=== PATIENT | female | born 1985 | race Caucasian/White ===

== ENCOUNTER 2021-09-16 10:55 | Emergency (ER) | payer MEDICAID ==
[2021-09-16 11:11] VITALS: BP 133/77; PULSE 82; O2SAT 99
--- NOTE | 2021-09-16 11:29 | ERPHSYRPT ---
- History of Present Illness Source: patient Exam Limitations: no limitations Patient Subjective Stated Complaint: pt was around seafood last night and rubbed her eye and today her right eye is red and swollen Triage Nursing Assessment: Pt brought to the ER by her boyfriend, adrienne garvin, denies pain, right eye suddenly became red and swollen at approx 1030, pt took an allergy tablet prior to coming but unsure of the drug of the medicine, pt denies any other symptoms or breathing problems, pt doesn't appear to be in any distress Physician History: 36 yo wf who is 5months presents w R eye redness/discharge x1hour. Pt took [employer] Claritin because she believes that she is having an allergic reaction to sushi and is allergic to seafood. Pt states that she is having milky, white discharge from the eye. She denies cough/coryza/trouble swallowing/dyspnea/contact lens use/R eye trauma. She also denies vag bleeding/discharge/pelvic pain. Timing/Duration: other (10:30) Location: right eye Severity: mild Apparent Injury: no Associated Symptoms: pain, itching, redness, matting, other (White discharge per pt) Visual Assistive Devices: None Chemical Exposure: No Trauma: No Welding Arc/Tanning Bed Exposure: No Allergies/Adverse Reactions: shellfish derived Allergy (Verified 09/16/21 11:11) Home Medications: Labetalol HCl 100 mg [Trandate 100 MG] 200 mg PO BID 09/16/21 [History] Levothyroxine Sodium 100 Mcg [Synthroid 100 Mcg] 100 mcg PO DAILY 09/16/21 [History] Pnv No.95/Ferrous Fum/Folic AC [ Vitamins Tablet] 1 tab PO DAILY 09/16/21 [History] Travel Risk - International Travel Have you traveled outside of the country in past 3 weeks: No - Coronavirus Screening Are you exhibiting any of the following symptoms?: No Close contact with a COVID-19 positive Pt in past 14-21 Days: No - Vaccine Status Have you recieved a Covid-19 vaccination: No - Review of Systems Constitutional: No Symptoms Eyes: Eye Redness, Itchy Ears, Nose, & Throat: No Symptoms Respiratory: No Symptoms Cardiac: No Symptoms Abdominal/Gastrointestinal: No Symptoms Genitourinary Symptoms: No Symptoms Musculoskeletal: No Symptoms Skin: No Symptoms Neurological: No Symptoms Psychological: No Symptoms Endocrine: No Symptoms Hematologic/Lymphatic: No Symptoms Immunological/Allergic: No Symptoms - Past Medical History Pertinent Past Medical History: Yes Cardiac History: Hypertension Endocrine Medical History: Hypothyroidism Other Medical History: anemia - Past Surgical History Past Surgical History: Yes Female Surgical History: Section - Social History Smoking Status: Never smoker Exposure to second hand smoke: Yes Drug Use: none Patient Lives Alone: No - Female History Hx Now: Yes Expected Date of Delivery: 02/03/22 - Nursing Vital Signs Nursing Vital Signs: Initial Vital Signs Temperature 96.4 F 09/16/21 11:00 Pulse Rate 82 09/16/21 11:00 Blood Pressure 133/77 09/16/21 11:00 O2 Sat by Pulse Oximetry 99 09/16/21 11:00 Pain Scale Pain Intensity 0 Borderline HTN - Physical Exam General Appearance: no apparent distress Vision Acuity Degree Evaluation Phase: Uncorrected Vision Acuity Right Eye: 20/70 Vision Acuity Left Eye: 20/50 Eye Exam: right eye: erythema (Pt reports R eye white discharge, but none noticed), exudate (Pt reports white DC but none seen), left eye: normal inspection, bilateral eye: PERRL, EOMI Ears, Nose, Throat Exam: normal ENT inspection, TMs normal, pharynx normal, moist mucous membranes Neck Exam: normal inspection, non-tender, supple, full range of motion, No meningismus, No mass, No Brudzinski, No Kernig's Respiratory Exam: normal breath sounds, airway intact Cardiovascular Exam: regular rate/rhythm, normal heart sounds, normal peripheral pulses, No murmur Gastrointestinal Exam: soft, normal bowel sounds, No tenderness Extremity Exam: normal inspection, normal range of motion Neurologic: alert, oriented x 3, cooperative, greens laborer II-XII nml as tested, normal mood/affect, nml cerebellar function, nml station & gait, sensation nml, No motor deficits, No sensory deficit Skin Exam: normal color, warm, dry, No rash Lymphatic: No adenopathy SpO2 Interpretation: normal SpO2: 99 O2 Delivery: Room Air - Course Nursing assessment & vital signs reviewed: Yes - Progress Progress Note: 09/16/21 15:10 Upon discharge, pt stated that she has glasses at home but does not wear them Counseled pt/family regarding: diagnosis, need for follow-up - Departure Departure Disposition: Home Clinical Impression: Conjunctivitis Condition: Stable Critical Care Time: No Referrals: Provider,Unknown [Primary Care Provider] - Follow up/PCP as directed Instructions: Conjunctivitis (Pinkeye) (DC) Additional Instructions: Ciloxan drops to right eye 4 times a day for 5 days Follow up with your family MD in 1-2 days or an eye doctor to check eye and vision Return to ER for any new signs/symptoms Prescriptions: Ciprofloxacin HCl [Ciloxan] 2 drops OP QID #5 ml
== END 2021-09-16 11:42 | disposition home or self-care (01) ==
LOC: MERGE 10:55 → ED 10:55
DX: H10.31 Unspecified acute conjunctivitis, right eye (principal); I10 Essential (primary) hypertension; Z33.1 Pregnant state, incidental; Z79.899 Other long term (current) drug therapy
CPT/HCPCS: 99283

== ENCOUNTER 2025-03-12 17:05 | Emergency (ER) | payer OTHER ==
--- NOTE | 2025-03-12 17:44 | ERPHSYRPT ---
- History of Present Illness Time Seen by Provider: 03/12/25 17:44 Source: patient, family Exam Limitations: no limitations Physician History: This is a morbidly obese 39-year-old white female patient arrives by private vehicle with a complaint of lateral left ankle and foot pain. She states has been present for 3 days. She does not recall a specific injury that occurred. Method of Injury: unknown Occurred: days ago (3) Severity of Pain-Max: mild Severity of Pain-Current: mild Lower Extremities Pain: foot: left (Lateral), ankle: left (Lateral) Modifying Factors: Improves With: movement Associated Symptoms: other (Hurts to bear weight but can do so) Allergies/Adverse Reactions: shellfish derived Allergy (Verified 09/17/21 11:51) Home Medications: Labetalol HCl 100 mg [Trandate 100 MG] 200 mg PO BID 09/16/21 [History] Levothyroxine Sodium 100 Mcg [Synthroid 100 Mcg] 100 mcg PO DAILY 09/16/21 [History] Pnv No.95/Ferrous Fum/Folic AC [ Vitamins Tablet] 1 tab PO DAILY 09/16/21 [History] Travel Risk - International Travel Have you traveled outside of the country in past 3 weeks: No - Emerging Infectious Disease Are you exhibiting symptoms associated with any current EIDs: No - Review of Systems Constitutional: No Symptoms Eyes: No Symptoms Ears, Nose, & Throat: No Symptoms Respiratory: No Symptoms Cardiac: No Symptoms Abdominal/Gastrointestinal: No Symptoms Genitourinary Symptoms: No Symptoms Musculoskeletal: Joint Pain (Left foot and ankle) Skin: No Symptoms Neurological: No Symptoms Psychological: No Symptoms Endocrine: No Symptoms Hematologic/Lymphatic: No Symptoms Immunological/Allergic: No Symptoms All Other Systems: Reviewed and Negative - Past Medical History Pertinent Past Medical History: Yes Cardiac History: Hypertension Endocrine Medical History: Hypothyroidism Other Medical History: anemia - Past Surgical History Past Surgical History: Yes Female Surgical History: Section - Social History Smoking Status: Never smoker Exposure to second hand smoke: Yes Drug Use: none Patient Lives Alone: No - Nursing Vital Signs Nursing Vital Signs: Initial Vital Signs Temperature 97.7 F 03/12/25 17:06 Pulse Rate 92 H 03/12/25 17:06 Respiratory Rate 18 03/12/25 17:06 Blood Pressure 142/82 03/12/25 17:06 O2 Sat by Pulse Oximetry 96 03/12/25 17:06 Pain Scale Pain Intensity 4 - Physical Exam General Appearance: no apparent distress, alert, obese Eyes, Ears, Nose, Throat Exam: normal ENT inspection, moist mucous membranes Neck Exam: normal inspection, non-tender, supple, full range of motion Cardiovascular/Respiratory Exam: chest non-tender, no respiratory distress Gastrointestinal/Abdominal Exam: non-tender Back Exam: normal inspection, normal range of motion, No CVA tenderness, No brendan tebral tenderness Hips Exam: bilateral: non-tender, normal inspection, normal range of motion, no evidence of injury Legs Exam: bilateral leg: non-tender, normal inspection, normal range of motion, no evidence of injury Knees Exam: bilateral knee: non-tender, normal inspection, normal range of motion, no evidence of injury Ankle Exam: right ankle: non-tender, left ankle: soft tissue tenderness (Laterally), bilateral ankle: normal inspection, normal range of motion, no evidence of injury Foot Exam: right foot: non-tender, left foot: soft tissue tenderness (Lateral), bilateral foot: normal inspection, normal range of motion, no evidence of injury Neuro/Tendon Exam: normal sensation, normal motor functions, normal tendon functions, responds to pain, no evidence tendon injury Mental Status Exam: alert, oriented x 3, cooperative Skin Exam: normal color, warm, dry SpO2 Interpretation: normal O2 Delivery: Room Air - Course Nursing assessment & vital signs reviewed: Yes Ordered Tests: Active Orders 24 hr Category Date Time Status ANKLE (3 VIEWS) Stat Exams 03/12/25 18:16 Ordered FOOT (MINIMUM 3 VIEWS) Routine Exams 03/12/25 18:16 Ordered - Progress Progress: unchanged Progress Note: 03/12/25 18:08 My medical decision making and the assignment of low complexity of this patient's medical issue today is based on review of the patient's past medical history, review the patient's medication list, history of present illness and physical findings on examination. The workup in this patient includes x-ray of the patient's left foot and left ankle. Differential diagnosis includes was not limited to muscle skeletal pain, nerve pain, left ankle fracture/dislocation, left ankle sprain, left foot fracture/dislocation, left foot sprain. 03/12/25 18:38 I interpreted the following preliminary x-ray reports: X-ray of the left ankle shows no acute fracture or dislocation. X-ray of left foot shows no acute fracture or dislocation. Counseled pt/family regarding: diagnosis, need for follow-up, rad results Medical Desision Making - Independent Historian Additional History obtained from: Family - Diagnostic Testing Diagnostic test were ordered, analyzed, and reviewed by me: Yes Radiological Interpretation: Interpreted by me - Risk of complications Low Risk: Low risk of morbidity from additional dx testing or treatment - Departure Departure Disposition: Home Clinical Impression: Left foot pain, Left ankle pain Condition: Stable Critical Care Time: No Referrals: KANNAN NEWBERRY [ACTIVE STAFF, FAMILY PRACTICE] - Follow up/PCP as directed Additional Instructions: Ice pack to left foot and ankle pain area 3 times a day for the next 72 hours. If there are no contraindications, alternate 650 mg Tylenol with 600 mg of ibuprofen with food, every 4 hours while awake. Call your primary care provider on 03/14/2025, to make arrangements for follow-up appointment for further evaluation and management.
[2025-03-12 18:18] VITALS: BP 142/82; RESP 18; TEMP 97.7; O2SAT 96
[2025-03-12 18:19] VITALS: PULSE 76
--- NOTE | 2025-03-12 20:20 | XRAY ---
Indication: Pain. Comparison: None 3 view left ankle obtained. No bony, articular, or soft tissue abnormalities.
--- NOTE | 2025-03-12 20:20 | XRAY ---
Indication: Pain. Comparison: None 3 nonweightbearing views left foot obtained. No bony, articular, or soft tissue abnormalities.
== END 2025-03-12 18:56 | disposition home or self-care (01) ==
LOC: ED 17:05
DX: M25.572 Pain in left ankle and joints of left foot (principal); M79.672 Pain in left foot; I10 Essential (primary) hypertension; Z79.899 Other long term (current) drug therapy

== ENCOUNTER 2025-05-16 16:26 | Emergency (ER) | payer OTHER ==
[2025-05-16 17:56] VITALS: TEMP 97.8
--- NOTE | 2025-05-16 18:29 | ERPHSYRPT ---
- History of Present Illness Time Seen by Provider: 05/16/25 18:27 Source: patient Exam Limitations: no limitations Patient Subjective Stated Complaint: patient injured knee on halloween night, reinjured today Triage Nursing Assessment: patient brought to ER by friend she is having extreme pain in left knee says she is unable to bear weight on it, she says it popped halloween night shes bee nursing it then today she was going up a step an it ga ve out and now the pain is worse and she cannot even put weight on it. Physician History: 40-year-old female presents to the emergency room with left knee pain patient reports she felt the pop prior to coming in she has been having pain on that side when she ambulates denies any other injuries now in ED for further eval Method of Injury: twisted Occurred: just prior to arrival Quality: constant Lower Extremities Pain: knee: left Modifying Factors: Improves With: nothing Associated Symptoms: none Allergies/Adverse Reactions: shellfish derived Allergy (Verified 09/17/21 11:51) Home Medications: Labetalol HCl 100 mg [Trandate 100 MG] 200 mg PO BID 09/16/21 [History] Levothyroxine Sodium 100 Mcg [Synthroid 100 Mcg] 100 mcg PO DAILY 09/16/21 [History] Pnv No.95/Ferrous Fum/Folic AC [ Vitamins Tablet] 1 tab PO DAILY 09/16/21 [History] Hx Tetanus, Diphtheria Vaccination/Date Given: No Hx Influenza Vaccination/Date Given: Yes Immunizations Up to Date: Yes Travel Risk - International Travel Have you traveled outside of the country in past 3 weeks: No - Emerging Infectious Disease Are you exhibiting symptoms associated with any current EIDs: No - Review of Systems Constitutional: No Fever, No Chills Eyes: No Symptoms Ears, Nose, & Throat: No Symptoms Respiratory: No Cough, No Dyspnea Cardiac: No Chest Pain, No Edema, No Syncope Abdominal/Gastrointestinal: No Abdominal Pain, No Nausea, No Vomiting, No Diarrhea Genitourinary Symptoms: No Dysuria Musculoskeletal: Joint Pain, Joint Swelling, No Back Pain, No Neck Pain Skin: No Rash Neurological: No Dizziness, No Focal Weakness, No Sensory Changes Psychological: No Symptoms Endocrine: No Symptoms All Other Systems: Reviewed and Negative - Past Medical History Pertinent Past Medical History: Yes Cardiac History: Hypertension Endocrine Medical History: Hypothyroidism Other Medical History: anemia - Past Surgical History Past Surgical History: Yes Female Surgical History: Section - Female History Hx Last Menstrual Period: 2wks ago Hx Now: No - Social History Smoking Status: Never smoker Exposure to second hand smoke: Yes Drug Use: none - Social Determinants of Health Will the patient participate in the screening: Yes Do you worry about a steady place to live?: No Do you have any problems with any of the following?: No known problems In the past 12 months,have you had to go without utilities?: No Transportation Issues: No Has anyone in your support network made you feel unsafe?: No Have you or anyone in your house had to go w/o enough food: No - Nursing Vital Signs Nursing Vital Signs: Initial Vital Signs Temperature 97.8 F 05/16/25 16:26 Pulse Rate 81 05/16/25 16:26 Respiratory Rate 20 05/16/25 16:26 Blood Pressure 157/117 05/16/25 16:26 O2 Sat by Pulse Oximetry 95 05/16/25 16:26 Pain Scale Pain Intensity 9 - Physical Exam General Appearance: alert Eyes, Ears, Nose, Throat Exam: moist mucous membranes Neck Exam: non-tender, supple Cardiovascular/Respiratory Exam: chest non-tender, normal breath sounds, regular rate/rhythm, no respiratory distress Gastrointestinal/Abdominal Exam: non-tender, guarding Back Exam: normal inspection, No vertebral tenderness Knees Exam: left knee: nodules, pain, swelling Neuro/Tendon Exam: normal sensation, normal motor functions Mental Status Exam: alert, oriented x 3, cooperative Skin Exam: normal color, warm, dry SpO2: 97 - Radiology Exams Left Knee X-ray Interpretation: Interpreted by me, No Fracture Ordered Tests: Active Orders 24 hr Category Date Time Status Nick Bandage Application -[facility] STAT Care 05/16/25 18:29 Active KNEE (3 VIEWS) Stat Exams 05/16/25 18:05 Taken Medication Summary Discontinued Medications Generic Name Dose Route Start Last Admin Trade Name Freq PRN Reason Stop Dose Admin Cyclobenzaprine HCl 10 mg 05/16/25 18:29 Cyclobenzaprine Hcl 10 Mg Tablet PO 05/16/25 18:30 STAT ONE Ketorolac Tromethamine 15 mg 05/16/25 18:29 Ketorolac Tromethamine 30 Mg/Ml Inj IM 05/16/25 18:30 STAT ONE - Progress Progress Note: 05/16/25 18:28 Patient was given Nick wrap x-ray shows no acute fracture patient likely suff ering from meniscus tear or MCL injury recommend patient follow-up with orthopedics tomorrow and to get an MRI patient be given Flexeril and Toradol and a prescription for Flexeril for home recommend Tylenol and Motrin and close return precautions the patient expressed understand the treatment plan will discharge at this time - Departure Departure Disposition: Home Clinical Impression: Knee sprain Qualifiers: Encounter type: initial encounter Involved ligament of knee: unspecified ligament Laterality: left Qualified Code(s): S83.92XA - Sprain of unspecified site of left knee, initial encounter Condition: Stable Critical Care Time: No Referrals: SABINA HOLLY NP [Primary Care Provider, UNKNOWN] - Follow up/PCP as directed RAQUEL ANN MD [ACTIVE STAFF, ORTHOPEDICS] - Follow up/PCP as directed Instructions: Knee Sprain (DC), Knee Pain (DC) Prescriptions: Cyclobenzaprine HCl 10 mg [Cyclobenzaprine 10 MG] 10 mg PO HS #7 tablet
[2025-05-16] MEDS ORDERED: TORAdol 30 mg Injection ONE (18:54)
[2025-05-16] MEDS ORDERED: Cyclobenzaprine 10 MG ONE (18:55)
[2025-05-16] MEDS: TORAdol 30 mg Injection IM ONE (18:55)
[2025-05-16] MEDS: Cyclobenzaprine 10 MG PO ONE (18:56)
[2025-05-16 19:13] VITALS: BP 148/91; RESP 18
[2025-05-16 19:14] VITALS: PULSE 90; O2SAT 96
--- NOTE | 2025-05-17 08:38 | XRAY ---
Indication: Pain following injury. Comparison: None 3 view left knee demonstrates osteopenia and minimal medial joint space narrowing. No other bony, articular, or soft tissue abnormalities.
== END 2025-05-16 19:15 | disposition home or self-care (01) ==
LOC: ED 16:26
DX: S83.92XA Sprain of unspecified site of left knee, initial encounter (principal); I10 Essential (primary) hypertension; Z79.899 Other long term (current) drug therapy